=== PATIENT | female | born 1985 | race Caucasian/White ===

== ENCOUNTER → 2023-05-03 10:18 | Outpatient (REF) | payer OTHER, SELFPAY | LOC: RAD 10:18 | PROVIDERS: ATTENDING PHYSICIAN Obstetrics & Gynecology; FAMILY PHYSICIAN Family Medicine | DX: N83.201 Unspecified ovarian cyst, right side (principal) | CPT/HCPCS: 76830; 76856 ==

== ENCOUNTER → 2023-06-14 10:14 | Outpatient (REF) | payer OTHER, SELFPAY | LOC: HWRAD 10:14 | PROVIDERS: ATTENDING PHYSICIAN Obstetrics & Gynecology; FAMILY PHYSICIAN Family Medicine | DX: N83.201 Unspecified ovarian cyst, right side (principal) | CPT/HCPCS: 76830; 76856 ==

== ENCOUNTER → 2023-08-27 08:22 | Outpatient (REF) | payer OTHER, SELFPAY | LOC: MRI 3T 08:22 | PROVIDERS: ATTENDING PHYSICIAN Obstetrics & Gynecology; FAMILY PHYSICIAN Family Medicine | DX: R93.89 Abnormal findings on diagnostic imaging of other specified body structures (principal) | CPT/HCPCS: 72197; A9575 ==

== ENCOUNTER 2024-03-10 07:31 | Emergency (ER) | payer OTHER, SELFPAY ==
[2024-03-10 07:41] VITALS: BP 154/91
[2024-03-10 09:23] VITALS: BP 134/82
--- NOTE | 2024-03-10 09:38 | ED.GENMED ---
History of Present Illness
General
Chief Complaint: Chest Problem
Source: patient
Time Seen by Provider: 03/10/24 09:19
History of Present Illness
History of Present Illness:
38-year-old female with past medical history of long QT presenting to the emergency department for evaluation after she was diagnosed with 'walking pneumonia' the Saturday before , completed a course of Zithromax with some improvement but
was still having persistent cough and right-sided rib pain which prompted her to go to the local urgent care that following Saturday where she was told she still had signs of pneumonia in the right lower lung and was given a steroid as well as a
prescription for doxycycline. Patient reports that she completed these and while she had improvement of the symptoms still had some mild right-sided rib discomfort, this morning was reaching for an object on a shelf in her kitchen when she felt a
popping sensation on the rib and worsening pain to the anterolateral right chest wall which is worse with palpation and deep inspiration. Patient still has a mild nonproductive cough but is otherwise denying any fevers, chills, rigors, lower
extremity edema, hemoptysis or any other concerns. Patient denies any recent travel, recent surgeries or OCP use.
Past History
Past History
ED Past Medical History: Other (prolonged QT)
ED Past Surgical History: and Tonsilectomy
Social History
Tobacco: Non-smoker
Alcohol: Occasional
Drug: None
Personal:
Living: with family
Employment: Employed
Family History
Family History: Negative Diabetes, Hypertension, Early CAD, Asthma or Cancer
Review of Systems
Review of Systems
All Other Systems: ROS reviewed and negative except as documented in HPI and ROS
Phy Exam
Physical Exam
Physical Exam:
GENERAL: Alert , in no apparent distress
EYE: conjunctiva clear
NECK: Supple, no significant adenopathy.
ENT: o/p clr, mmm.
CARDIAC: Regular rate and rhythm
LUNGS: Clear breath sounds bilaterally, no acute respiratory distress, no wheezes/rales/rhonchi, occasional nonproductive cough noted
CHEST WALL: Tenderness inferior and lateral to the right breast. no rashes. Tender to palpation
NEUROLOGICAL: Alert and oriented
SKIN: Warm and dry, skin intact.
MUSCULOSKELETAL: well perfused.
PSYCH: Normal and appropriate interaction.
Scores
Heart Failure Risk
Heart Failure Risk Score: Not Applicable
Heart Score for Chest Pain Patients
STEMI patient?: Not applicable
Withdrawal Assessment of Alcohol
Withdrawal Assessment Completed?: Not applicable
Course
Orders/Labs/Results
Orders:
Orders
03/10/24 07:45
EKG [Electrocardiogram (*1)] Urgent
Reason for Study: Chest Pain
EKG- Treatment ONCE
03/10/24 09:38
Test Result ONCE
03/10/24 09:43
Ketorolac [Toradol] 30 mg IV NOW STA
03/10/24 10:02
Complete Blood Count/With Diff Urgent
Comprehensive Metabolic Panel Urgent
D-Dimer Urgent
HCG, Serum Qualitative Screen Urgent
Troponin I Urgent
03/10/24 10:31
CT Chest Pe Study Urgent
Comment:
Reason For Exam: right sided pleurisy, cough, elevated dimer
Abnormal Lab Results
03/10/24
10:02
WBC 10.9 H 10^3/uL
(4.8-10.8)
MCH 31.2 H pg
(27.0-31.0)
Abs Immat Gran (auto) 0.1 H 10^3/uL
(0-0.05)
Absolute Neuts (auto) 8.1 H 10^3/uL
(1.4-6.5)
Lymphocytes % 19.2 L %
(20.5-51.1)
D-Dimer 1.64 H ug/mlFEU
(0.00-0.50)
Creatinine 0.5 L mg/dL
(0.6-1.0)
03/10/24 10:02
03/10/24 10:02
Vital Signs
Initial and Last Documented VS:
Initial Vital Signs
Temp Pulse Resp BP Pulse Ox
99 F 86 16 154/91 98
03/10/24 07:41 03/10/24 07:41 03/10/24 07:41 03/10/24 07:41 03/10/24 07:41
Last Documented Vital Signs
Temp Pulse Resp BP Pulse Ox
99 F 70 19 126/86 96
03/10/24 07:41 03/10/24 10:30 03/10/24 10:30 03/10/24 10:00 03/10/24 10:30
MDM/Problems Addressed
Differential Diagnosis Includes:
Pleurisy, intercostal muscle strain, less concern for continued infectious etiology, PE considered as well
MDM/Problems Addressed:
38-year-old female presenting to the emergency department for evaluation of right-sided rib pain. Notes recent pneumonia and completed 2 separate antibiotics as well as a steroid taper. Today patient was reaching for an object when she felt a
popping sensation and worsening pain to the right lateral rib. Given recent symptoms will check labs including a D-dimer although my suspicion for PE is quite low. Will order Toradol for pain control. Disposition pending.
*Radiology
Radiology exam reviewed: radiology read reviewed
*Critical Care Note
Total Time (30-74mins, 75-104mins- exclusive of procedures): Not Applicable
Patient Management
Escalation/DeEscalation of care consider admission/obs:
CTA negative for PE. RLL pneumonia and reactive lymph node noted. Patient already completed z-pack and doxycycline. Suspect this is residual finding from recent illness and not due to acute infection. Suspect pleurisy as most likely cause. Continue
anti-inflammatories. Follow up with PCP. Stable for d/c and aware of return precautions
ED Attending Note
-
Portions of this chart may have been created with voice recognition software.� Occasional wrong word or��sound alike� substitutions may have occurred due to the inherent limitations of voice recognition software.
Discharge Plan
Departure
Patient Disposition: Home (Routine Discharge)
Date of Disposition: 03/10/24
Time of Disposition: 11:13
Patient with high blood pressure during this ER visit?: Yes
Discharge Problem:
Pleurisy
Instructions: Pleurisy
Prescriptions:
No Action
labetalol 100 MG tablet
100 mg PO BID
PNV cmb#95-ferrous fumarate-FA [ Multivitamins] 1 EACH tablet
1 ea PO DAILY
Referrals:
Josey Hodges DO [Family Provider] -
Interventions
Interventions:
*Risk Screen - Suicide Last Done: 03/10/24 07:41
*General Assessment Last Done: 03/10/24 11:15
*Neglect/Abuse Screening Last Done: 03/10/24 07:41
ED- Fall Risk Assessment Last Done: 03/10/24 10:11
*ED COVID-19 Vaccine History Last Done: 03/10/24 11:15
*Nursing Disposition Last Done: 03/10/24 11:15
ED- Cardiac Assessment Last Done: 03/10/24 10:11
ED- Pulmonary Assessment Last Done: 03/10/24 10:11
Discharge Date and Time
Discharge Date/Time: 03/10/24 11:55
Print Language: CZECH
[2024-03-10 09:53] VITALS: BMI 26.7
[2024-03-10 10:00] VITALS: BP 126/86
[2024-03-10] MEDS: TORADOL 30 MG IV (10:03)
[2024-03-10 10:12] LABS: % Basophils 0.5 % (0-2); % Eosinophils 0.4 % (0-6); % Immature Granulocytes 0.5 % (0-0.5); % Lymphocytes 19.2 % (20.5-51.1); % Monocytes 5.9 % (1.7-9.3); % Neutrophils 73.5 % (42.2-75.2); Absolute Basophils 0.1 10^3/uL (0-0.2); Absolute Immature Granulocytes 0.1 10^3/uL (0-0.05); Absolute Lymphocytes 2.1 10^3/uL (1.2-3.4); Absolute Monocytes 0.6 10^3/uL (0.1-0.6); Absolute Neutrophils 8.1 10^3/uL (1.4-6.5); Hematocrit 38.9 % (37.0-47.0); Hemoglobin 13.8 g/dL (12.0-16.0); Mean Corp Hgb Conc. 35.5 g/dL (33.0-37.0); Mean Corpuscular Hgb 31.2 pg (27.0-31.0); Mean Platelet Volume 9.6 fL (7.4-10.4); Nucleated Red Blood Cells % 0 %; Platelet Count 258 10^3/uL (130-400); Red Blood Cell Count 4.42 10^6/uL (4.20-5.40); Red Cell Dist. Width 11.9 % (11.5-14.5); White Blood Cell Count 10.9 10^3/uL (4.8-10.8)
[2024-03-10 10:24] LABS: D-Dimer 1.64 ug/mlFEU (0.00-0.50)
[2024-03-10 10:25] LABS: HCG, Serum Qualitative Screen Negative
[2024-03-10 10:29] LABS: ALT (SGPT) 24 U/L (0-35); AST (SGOT) 27 U/L (14-36); Albumin 4.8 g/dl (3.5-5.0); Alkaline Phosphatase 46 U/L (38-126); Blood Urea Nitrogen 14 mg/dl (7-17); Calcium 9.6 mg/dl (8.4-10.2); Carbon Dioxide 24 mmol/L (22-30); Chloride 103 mmol/L (98-107); Estimated Creatinine Clearance 117 ml/min; Glucose 94 mg/dl (70-99); Sodium 138 mmol/L (135-145); Total Bilirubin 1.3 mg/dl (0.2-1.3); Total Protein 7.6 g/dl (6.3-8.2); eGFR > 60.00
[2024-03-10 10:38] LABS: Troponin I < 0.012 ng/ml
== END 2024-03-10 11:55 | disposition home or self-care (01) ==
LOC: EMR 07:31
PROVIDERS: Physician Assistant Medical; EMERGENCY PHYSICIAN Emergency Medicine; FAMILY PHYSICIAN Family Medicine
DX: R09.1 Pleurisy (principal); J18.9 Pneumonia, unspecified organism; R03.0 Elevated blood-pressure reading, without diagnosis of hypertension; I45.81 Long QT syndrome; Z88.0 Allergy status to penicillin; Z88.2 Allergy status to sulfonamides; Z91.018 Allergy to other foods
CPT/HCPCS: 99284; 96374; 71275; 80053; 84484; 84703; 85025; 85379; 93005; Q9967